=== PATIENT | male | born 1970 | race Caucasian/White ===

== ENCOUNTER 2022-07-06 04:06 | Emergency (ER) | payer BC ==
[~2022-07-06] VITALS: Ht 182.9 cm; Wt 100.0 kg
[2022-07-06 04:23] VITALS: TEMP 98.8
[2022-07-06 04:35] LABS: COLLECTION METHOD CLEAN CATCH
[2022-07-06 04:53] LABS: BASO % 0.3 % (0.0-2.0); EOS # 0.1 K/mm3 (0.0-0.7); EOS % 1.3 % (0.0-4.0); GRAN # 7.2 K/mm3 (1.4-6.5); GRAN % 69.4 % (42.2-75.2); HEMATOCRIT 46.4 % (42.0-52.0); HEMOGLOBIN 16.6 g/dl (13.5-18.0); LYMPH # 1.8 K/mm3 (1.2-3.4); LYMPH % 17.7 % (20.0-51.0); MEAN CELL VOLUME 86 fl (80.0-100.0); MEAN CORPUSCULAR HEMOGLOBIN 31 pg (27-31); MEAN CORPUSCULAR HGB CONC 36 g/dl (33.0-37.0); MEAN PLATELET VOLUME 10.2 fl (7.4-10.4); MONO # 1.1 K/mm3 (0.1-0.6); PLATELET COUNT 213 K/mm3 (130-400); RED BLOOD COUNT 5.42 M/mm3 (4.20-5.60); REDCELL DISTRIBUTION WIDTH-CV 12.8 % (11.5-14.5)
[2022-07-06 05:03] LABS: MUCOUS Present (NOT PRESENT); SQUAMOUS EPITHELIAL None Seen /hpf (0-10); URINE BACTERIA None Seen /hpf (NONE SEEN); URINE RBC 0-2 /hpf (0-2)
[2022-07-06 05:10] LABS: URINE APPEARANCE Clear (CLEAR/HAZY); URINE COLOR Yellow (YELLOW)
[2022-07-06 05:11] LABS: CALCIUM 9.4 mg/dL (8.4-10.2); CREATININE, serum 1.01 mg/dL (0.72-1.25); POTASSIUM 3.9 mmol/L (3.5-4.5); TOTAL PROTEIN 7.5 gm/dL (6.2-8.1)
[2022-07-06 05:11] LABS: URINE BLOOD Negative (NEGATIVE); URINE GLUCOSE Negative (NEGATIVE); URINE KETONE Negative (NEGATIVE); URINE NITRATE Negative (NEGATIVE); URINE PROTEIN(semi-quant) Negative (NEGATIVE); URINE UROBILINOGEN 0.2 E.U/dL (0.2-1.0)
[2022-07-06] MEDS ORDERED: AMOXICILLIN 8751 TAB PO (07:55)
[2022-07-06] MEDS ORDERED: ROXICODONE 55 MG/TAB PO (07:55)
[2022-07-06] MEDS ORDERED: NAPROSYN500 MG PO (07:55)
[2022-07-06 08:05] VITALS: BP 142/101; PULSE 90
== END 2022-07-06 08:05 | disposition home or self-care (01) ==
LOC: COL.ER 04:06
PROVIDERS: Emergency Medicine
DX: K57.32 Diverticulitis of large intestine without perforation or abscess without bleeding (principal); Z28.310 Unvaccinated for COVID-19
CPT/HCPCS: J2270; J7030